=== PATIENT | female | born 1980 | race Two or more races ===

== ENCOUNTER 2016-09-17 15:37 | Emergency (ER) | payer OTHER ==
[2016-09-17 15:48] VITALS: BP 137/58
[2016-09-17] MEDS ORDERED: oxyCODONE/Acetamin 5/325 MG* TAB PO ONE (16:23)
--- NOTE | 2016-09-17 16:35 | ED ---
Lower Extremity - HPI Summary HPI Summary: Patient states she mis-stepped off her porch and felt a "pop" in her left ankle as it inverted. She denies previous injury to the area. Denies LOC or blacking out. Denies hitting her head. States she did not incur other injuries and is otherwise stable. No medications. Several allergies, although she states she is NOT allergic to tylenol and takes it every once in awhile at home with no complications. She states the pain was immediate and is unable to bear weight. - History of Current Complaint Hx Obtained From: Patient Hx Last Menstrual Period: 03/02/16 Mechanism Of Injury: Twisted - inverted Onset of Pain: Immediate Onset/Duration: Minutes Severity Initially: Severe Severity Currently: Severe Pain Intensity: 10 Pain Scale Used: 0-10 Numeric Timing: Intermittent - throbbing in sensation Location: Is Discrete @ - L lateral ankle Character Of Pain: Sharp, Aching Associated Signs And Symptoms: Positive: Swelling Aggravating Factor(s): Standing, Ambulation, Movement, Weight Bearing, Other - unable to bear weight Alleviating Factor(s): Nothing Able to Bear Weight: No Feet (Multiple View): 1 - swelling and pain - Risk Factors Gout Risk Factors: Negative DVT Risk Factors: Negative Septic Arthritis Risk Factor: Negative <Tereza Marinelli - Last Filed: 09/17/16 17:27> <Jordan Lake - Last Filed: 09/17/16 17:53> - History of Current Complaint Chief Complaint: EDExtremityLower Stated Complaint: LT ANKLE INJURY - Allergies/Home Medications Allergies/Adverse Reactions: Allergies Allergy/AdvReac Type Severity Reaction Status Date / Time Acetaminophen Allergy Intermediate Vomiting Verified 09/17/16 15:49 [From NyQuil Nighttime Cold/Flu Medicine ] Dextromethorphan Allergy Intermediate Vomiting Verified 09/17/16 15:49 [From NyQuil Nighttime Cold/Flu Medicine ] Doxylamine Allergy Intermediate Vomiting Verified 09/17/16 15:49 [From NyQuil Nighttime Cold/Flu Medicine ] Ethanol Allergy Intermediate Vomiting Verified 09/17/16 15:49 [From NyQuil Nighttime Cold/Flu Medicine ] Guaifenesin [From DayQuil] Allergy Intermediate Vomiting Verified 09/17/16 15:49 Lidocaine Allergy Intermediate Rash Verified 09/17/16 15:49 Penicillins Allergy Intermediate SYNCOPE Verified 09/17/16 15:49 Pseudoephedrine Allergy Intermediate Vomiting Verified 09/17/16 15:49 [From NyQuil Nighttime Cold/Flu Medicine ] Fluconazole [From Diflucan] Allergy Rash Verified 09/17/16 15:49 Latex Allergy Rash Verified 09/17/16 15:49 SEASONAL ENVIRONMENTAL Allergy Intermediate ITCHY Uncoded 09/17/16 15:49 WATERY EYES PMH/Surg Hx/FS Hx/Imm Hx Previously Healthy: Yes Endocrine/Hematology History: Reports: Hx Thyroid Disease - HYPOTHYROIDISM Denies: Hx Diabetes, Hx Anemia Cardiovascular History: Denies: Hx Hypertension, Hx Pacemaker/ICD GI History: Reports: Other GI Disorders - CONSTIPATION Denies: Hx Jaundice History: Denies: Hx Renal Disease Musculoskeletal History: Denies: Hx Arthritis Sensory History: Reports: Hx Contacts or Glasses - READING GLASSES Denies: Hx Hearing Aid Opthamlomology History: Reports: Hx Contacts or Glasses - READING GLASSES Neurological History: Reports: Hx Migraine - 7 YEARS AGO NO PROBLEMS NOW, Hx Nerve Disease - TRIGEMINAL NEURALGIA, Other Neuro Impairments/Disorders - Gordon' s Palsy, TRIGEMINAL NEURALGIA Denies: Hx Headaches Psychiatric History: Denies: Hx Panic Disorder Infectious Disease History: No Infectious Disease History: Denies: Traveled Outside the [place] in Last 30 Days - Family History Known Family History: Positive: None - Social History Occupation: Employed Full-time Lives: With Family Alcohol Use: Weekly Alcohol Amount: 2xs per week Hx Substance Use: No Substance Use Type: Reports: None Smoking Status (MU): Never Smoked Tobacco Have You Smoked in the Last Year: No <Tereza Marinelli - Last Filed: 09/17/16 17:27> Review of Systems - ROS Summary Review of Systems Summary: Constitutional: The patient denies fever, WILLIS. HEENT: Head: The patient denies headaches or dizziness. Eyes: The patient denies diplopia, blurry vision. Cardiovascular: The patient denies chest pain, palpitations, syncope, night cramps, or orthostasis. Respiratory: The patient denies cough. Muscles: The patient denies myalgia or weakness. Positive for ankle pain. Joints: The patient denies arthralgia and/or arthritis at baseline, but notes to severe L ankle tenderness. Neurologic: The patient denies headache, loss of consciousness, or seizure. Dermatologic: The patient denies hyperpigmentation, rash, or photosensitivity. Constitutional: Negative Eyes: Negative Cardiovascular: Negative Respiratory: Negative Gastrointestinal: Negative Positive: Decreased ROM - at left ankle Positive: Other - swelling Neurological: Negative Positive: Anxious All Other Systems Reviewed And Are Negative: Yes <Tereza Marinelli - Last Filed: 09/17/16 17:27> Physical Exam - Summary Physical Exam Summary: Appearance: WDW, very tearful. Skin: Soft dry skin, no lesions. Nailbeds pink with no cyanosis or clubbing. Eyes: SHAHNAZ, EOMI, Conjunctiva pink with no redness or exudates. Mouth: Moist mucosa Neck: Full range of motion. Thyroid not palpable. Trachea at midline. No lymphadenopathy. Pulm: Chest symmetrical expansion. No deformities on posterior chest wall. Lungs clear to auscultation and percussion, without adventitious sounds. CV: No JVD. No deformities on anterior chest wall. Heart sounds. exam not performed Musculoskeletal: Full range of motion in upper extremities. ROM limited on L ankle. Unable to dorsiflex or plantarflex d/t pain. Unable to bear weight. No deformities noted. Pulses full and equal. No calf tenderness. no knee tenderness. tenderness on ankle, but no tenderness in lower extremity. Neuro: Motor strength is 5/5 in upper extremities bilaterally. A&OX3 Derm: No rashes or lesions noted. swelling over l ankle. Psych: Logical, coherent. very tearful Triage Information Reviewed: Yes Vital Signs On Initial Exam: Initial Vitals Temp Pulse Resp BP Pulse Ox 97.0 F 73 16 137/58 100 09/17/16 15:43 09/17/16 15:43 09/17/16 15:43 09/17/16 15:43 09/17/16 15:43 Vital Signs Reviewed: Yes Appearance: Positive: Well-Appearing, Pain Distress Skin: Positive: Warm, Dry Head/Face: Positive: Normal Head/Face Inspection Eyes: Positive: Normal, EOMI, SHAHNAZ, Conjunctiva Inflammed - tearful Neck: Positive: Supple, Nontender Respiratory/Lung Sounds: Positive: Clear to Auscultation, Breath Sounds Present Cardiovascular: Positive: Normal Musculoskeletal: Positive: Strength/ROM Intact - upper extremities and right lower extremity, Limited @ - l ankle dorsi and plantar flexion, Abnormal @ - l ankle, Pain @ Neurological: Positive: Normal, Speech Normal Psychiatric: Positive: Normal <Tereza Marinelli - Last Filed: 09/17/16 17:27> Vital Signs On Initial Exam: Initial Vitals Temp Pulse Resp BP Pulse Ox 97.0 F 73 16 137/58 100 09/17/16 15:43 09/17/16 15:43 09/17/16 15:43 09/17/16 15:43 09/17/16 15:43 <[place] - Last Filed: 09/17/16 17:53> Diagnostics - Vital Signs Vital Signs Temp Pulse Resp BP Pulse Ox 09/17/16 15:43 97.0 F 73 16 137/58 100 - Radiology No standard instances Xray Interpretation: No Acute Changes - moderate swelling noted, but no fracture seen Radiology Interpretation Completed By: Radiologist <Tereza Marinelli - Last Filed: 09/17/16 17:27> - Vital Signs Vital Signs Temp Pulse Resp BP Pulse Ox 09/17/16 15:43 97.0 F 73 16 137/58 100 <[place] - Last Filed: 09/17/16 17:53> Lower Extremity Course/Dx - Course Course Of Treatment: Patient examined. Percoset ordered for pain. Patient in acute distress and very tearful. L ankle xray ordered. Xray showed no acute fractures. Air gel splint and crutches given for support. Follow up with orthopedics if symptoms persist. - Diagnoses Differential Diagnosis/HQI/PQRI: Positive: Fracture (Open), Sprain, Strain - Physician Notifications Instructed by Provider To: Have Pt Call For Appt. <Tereza Marinelli - Last Filed: 09/17/16 17:27> <[place] - Last Filed: 09/17/16 17:53> - Diagnoses Provider Diagnoses: Left ankle strain Discharge <Tereza Marinelli - Last Filed: 09/17/16 17:27> <[place] - Last Filed: 09/17/16 17:53> - Discharge Plan Condition: Stable Disposition: HOME Prescriptions: oxyCODONE/Acetamin 5/325 MG* [Percocet 5/325 TAB*] 1 tab PO Q6H PRN #10 tab MDD 4 PRN Reason: Pain Patient Education Materials: Ankle Sprain (ED) Referrals: Oli Haq MD [Primary Care Provider] - Additional Instructions: Rest, ice, elevate and ibuprofen 600mg three times daily with meals on opposite schedule of pain medication. Follow up with Orthopedics if symptoms worsen or fail to improve. Move the ankle as tolerated to avoid stiffness.
--- NOTE | 2016-09-17 17:05 | RAD ---
Indication: LEFT ankle pain and swelling following rolling injury. Lateral swelling. Comparison: None. Technique: AP, mortise, and lateral views LEFT ankle. REPORT AND IMPRESSION: Significant soft tissue swelling over the lateral malleolus. Negative for fracture or malalignment. No definitive joint effusion evident.
--- NOTE | 2016-09-17 17:55 | ED ---
David Greenfield Soohyun, scribed for Jordan Lake MD on 09/17/16 at 1637 . Progress - Progress Note Progress Note: This 35 y/o female presents to ED for acute left ankle pain since 1 hour ago. Pt was coming down the steps when she missed a step, inverted, and heard a "pop ". Pain is located lateral aspect of Pt did not walk on left ankle due to pain. X-ray imaging is pending. - Results/Orders Results/Orders: The patient has acute pain. The skin on left ankle is intact. Musculoskeletal: There is good capillary refill. There is no peripheral edema or calf tenderness elicited. Swelling and tenderness at left lateral malleollus. No tenderness or swelling at left medial malleollus. No tenderness at base of metatarsal. Neurological: Patient is alert and oriented to person, place and time. Psychiatric: X-ray Ankle -- Significant soft tissue swelling over the lateral malleolus. Negative for fracture or malalignment. No definitive joint effusion evident. - EKG/XRAY/CT XRAY: ankle - left Course/Dx - Diagnoses Provider Diagnoses: Left ankle strain The documentation as recorded by the David correia Soohyun accurately reflects the service I personally performed and the decisions made by Jaya hu Drew, MD.
== END 2016-09-17 18:15 | disposition home or self-care (01) ==
LOC: ED 15:37
DX: S93.402A Sprain of unspecified ligament of left ankle, initial encounter (principal); Z88.0 Allergy status to penicillin; X50.1XXA Overexertion from prolonged static or awkward postures, initial encounter; Y92.9 Unspecified place or not applicable
CPT/HCPCS: 99282; A9270-GY

== ENCOUNTER 2018-02-03 20:39 | Emergency (ER) | payer OTHER ==
[2018-02-03 20:49] VITALS: BP 129/78
--- NOTE | 2018-02-03 21:01 | ED ---
GI/ HPI - HPI Summary HPI Summary: 37F presents with burning perineal pain for the past couple days. She noticed a sore today near her urethra. She states her cheated on her two weeks ago. She was seen at her primary and they told her she had BV which she did not have treatment for. She states that she noticed some discharge so started to use miconazole. She states she noticed redness and inflammation of her perineum after using the miconazole so her doctor told her she was having an allergic reaction and to stop everything. She states it seemed to get better but last night she developed the burning pain near her urethra. no history of herpes. has trigeminal neuralgia. She denies any n/v/d or abdominal pain. no uti symptoms or fevers. She had std testing that was negative. - History of Current Complaint Chief Complaint: UCGU Time Seen by Provider: 02/03/18 20:45 Stated Complaint: UTI Hx Last Menstrual Period: 03/02/16 Pain Intensity: 8 - Allergy/Home Medications Allergies/Adverse Reactions: Allergies Allergy/AdvReac Type Severity Reaction Status Date / Time acetaminophen [From NyQuil] Allergy Unknown Verified 02/03/18 20:52 Reaction Details dextromethorphan Allergy Unknown Verified 02/03/18 20:52 [From NyQuil] Reaction Details doxylamine [From NyQuil] Allergy Unknown Verified 02/03/18 20:52 Reaction Details ibuprofen Allergy See Comment Verified 02/03/18 20:52 [From DayQuil Sinus Pressure/Pain] latex Allergy Rash Verified 02/03/18 20:52 lidocaine Allergy Rash Verified 02/03/18 20:52 Penicillins Allergy Unknown Verified 02/03/18 20:52 Reaction Details pseudoephedrine Allergy See Comment Verified 02/03/18 20:52 [From DayQuil Sinus Pressure/Pain] SEASONAL ENVIRONMENTAL Allergy Intermediate ITCHY Uncoded 02/03/18 20:52 WATERY EYES Home Medications: Home Medications Gabapentin 400 mg PO 02/03/18 [History] PMH/Surg Hx/FS Hx/Imm Hx Endocrine/Hematology History: Reports: Hx Thyroid Disease - HYPOTHYROIDISM Denies: Hx Diabetes, Hx Anemia Cardiovascular History: Denies: Hx Hypertension, Hx Pacemaker/ICD GI History: Reports: Other GI Disorders - CONSTIPATION Denies: Hx Jaundice History: Denies: Hx Renal Disease Musculoskeletal History: Denies: Hx Arthritis Sensory History: Reports: Hx Contacts or Glasses - READING GLASSES Denies: Hx Hearing Aid Opthamlomology History: Reports: Hx Contacts or Glasses - READING GLASSES Neurological History: Reports: Hx Migraine - 7 YEARS AGO NO PROBLEMS NOW, Hx Nerve Disease - TRIGEMINAL NEURALGIA, Other Neuro Impairments/Disorders - Gordon' s Palsy, TRIGEMINAL NEURALGIA Denies: Hx Headaches Psychiatric History: Denies: Hx Panic Disorder Infectious Disease History: No Infectious Disease History: Denies: Traveled Outside the [place] in Last 30 Days - Family History Known Family History: Positive: None - Social History Alcohol Use: Occasionally Alcohol Amount: 2xs per week Hx Substance Use: No Substance Use Type: Reports: None Smoking Status (MU): Never Smoked Tobacco Have You Smoked in the Last Year: No Review of Systems Negative: Fever Negative: Chest Pain Negative: Shortness Of Breath Positive: Other - vaginal pain. Negative: Abdominal Pain, Vomiting, Nausea Negative: dysuria, frequency, urgency All Other Systems Reviewed And Are Negative: Yes Physical Exam Triage Information Reviewed: Yes Vital Signs On Initial Exam: Initial Vitals Temp Pulse Resp BP Pulse Ox 98.1 F 73 18 129/78 100 02/03/18 20:43 02/03/18 20:43 02/03/18 20:43 02/03/18 20:43 02/03/18 20:43 Vital Signs Reviewed: Yes Appearance: Positive: Well-Appearing Skin: Positive: Warm, Dry Head/Face: Positive: Normal Head/Face Inspection Eyes: Positive: Normal, Conjunctiva Clear Respiratory/Lung Sounds: Positive: Clear to Auscultation, Breath Sounds Present Cardiovascular: Positive: Normal, RRR Abdomen Description: Positive: Nontender, Soft Bowel Sounds: Positive: Present Pelvic Exam: Positive: Bimanual Exam Normal, No Cerv. Motion Tender, Discharge - white, Other - small area of erythema on right side of vuvla that is tender to tocuh Musculoskeletal: Positive: Normal Neurological: Positive: Normal Psychiatric: Positive: Normal Diagnostics - Vital Signs Vital Signs Temp Pulse Resp BP Pulse Ox 02/03/18 20:43 98.1 F 73 18 129/78 100 - Laboratory Lab Statement: Any lab studies that have been ordered have been reviewed, and results considered in the medical decision making process. GIGU Course/Dx - Course Course Of Treatment: 37F presents with burning perineal pain for the past couple days. She noticed a sore today near her urethra. She states her cheated on her two weeks ago. She was seen at her primary and they told her she had BV which she did not have treatment for. She states that she noticed some discharge so started to use miconazole. She states she noticed redness and inflammation of her perineum after using the miconazole so her doctor told her she was having an allergic reaction and to stop everything. She states it seemed to get better but last night she developed the burning pain near her urethra. no history of herpes. has trigeminal neuralgia. on exam abd soft nontender. external exam area of small circular area of erythema on right vuvla. white discharge present vaginal canal. no CMT. with burning sensation and erythema will treat presuptively as herpes. will wait for culture for white discharge as states no symptoms from such. will treat herpes with valtrex. patient understand and agrees with plan. - Diagnoses Differential Diagnoses - Female: STD, Urinary Tract Infection, Vaginitis Provider Diagnoses: Lesion of genital area Discharge - Sign-Out/Discharge Documenting (check all that apply): Discharge/Admit/Transfer - Discharge Plan Condition: Good Disposition: HOME Prescriptions: ValACYclovir (*) [Valtrex 1 GM(*)] 1 gm PO BID #20 tab Patient Education Materials: Genital Herpes Simplex (ED) Referrals: Oli Haq MD [Primary Care Provider] - Additional Instructions: will treat presumptively as herpes with valtrex twice a day for 10 days Follow up with primary if does not resolve in 10 days Return to ED if develop any new or worsening symptoms - Billing Disposition and Condition Condition: GOOD Disposition: HOME
[2018-02-03] MEDS ORDERED: Acyclovir* 200 MG CAP PO ONE (21:17)
--- NOTE | 2018-02-06 18:46 | UC ---
- Progress Note Progress Note: 02/06/2018 Herpes 1 and 2 are negative. Pt Rx Valtrex call Pt back and notify her of result. Advised to stop Valtrex PO. all the rest of the STD's screening were negative Geni Parrish PA-C Course/Dx - Diagnoses Provider Diagnoses: Lesion of genital area Discharge - Sign-Out/Discharge Documenting (check all that apply): Discharge/Admit/Transfer - D/c home - Discharge Plan Condition: Good Disposition: HOME Prescriptions: ValACYclovir (*) [Valtrex 1 GM(*)] 1 gm PO BID #20 tab Patient Education Materials: Genital Herpes Simplex (ED) Referrals: Oli Haq MD [Primary Care Provider] - Additional Instructions: will treat presumptively as herpes with valtrex twice a day for 10 days Follow up with primary if does not resolve in 10 days Return to ED if develop any new or worsening symptoms - Billing Disposition and Condition Condition: GOOD Disposition: HOME
== END 2018-02-03 21:30 | disposition home or self-care (01) ==
LOC: UCEAST 20:39
DX: L98.8 Other specified disorders of the skin and subcutaneous tissue (principal); A60.04 Herpesviral vulvovaginitis; Z88.6 Allergy status to analgesic agent; Z88.8 Allergy status to other drugs, medicaments and biological substances; Z91.040 Latex allergy status; Z88.0 Allergy status to penicillin; Z91.048 Other nonmedicinal substance allergy status
CPT/HCPCS: 36415; 86592; 86703; 87480; 87491; 87510; 87529; 87591; 87661; 87798; 99212; A9270-GY; G0463